=== PATIENT | female | born 1965 | race Caucasian/White ===

== ENCOUNTER 2022-03-21 09:37 | Outpatient (CLI) | payer OTHER | END 2022-03-21 09:38 | disposition home or self-care (01) | LOC: CSHMRI 09:37 | PROVIDERS: ATTEND Nurse Practitioner Family | DX: M54.16 Radiculopathy, lumbar region (principal); M43.16 Spondylolisthesis, lumbar region; M47.816 Spondylosis without myelopathy or radiculopathy, lumbar region; N85.2 Hypertrophy of uterus | CPT/HCPCS: 72120; 72148 ==